=== PATIENT | male | born 1975 | race Caucasian/White ===

== ENCOUNTER 2017-12-04 14:16 | Emergency (ER) | payer OTHER ==
[~2017-12-04] VITALS: Ht 165.1 cm; Wt 68.0 kg
[2017-12-04 15:12] VITALS: BP 145/102
[2017-12-04] MEDS ORDERED: MOVE FREE JOIN1 EACH PO (15:15)
== END 2017-12-04 16:21 | disposition home or self-care (01) ==
LOC: M.ERS 14:16
DX: L72.0 Epidermal cyst (principal)